=== PATIENT | female | born 1985 | race Caucasian/White ===

== ENCOUNTER 2022-12-22 16:07 | Outpatient (CLI) | payer OTHER, SELFPAY ==
[2022-12-22] VITALS (8 sets, daily range): BP systolic 122–147; BP diastolic 69–85; PULSE 81–93
[2022-12-22 16:49] LABS: Basophils Percent Auto 0.5 % (0.2-1.2); Eosinophils Absolute Auto 0.2 K/mm3 (0-0.3); Eosinophils Percent Auto 2.4 % (0-4.4); Hemoglobin 9.9 g/dL (12.0-15.0); Immature Granulocyte Absolute 0.05 K/mm3 (0.00-0.031); Immature Granulocyte Percent A 0.6 % (0-0.5); Lymphocytes Absolute Auto 1.47 K/mm3 (0.9-3.2); Lymphocytes Percent Auto 18.9 % (18.3-44.2); Mean Corpuscular HGB Conc 31.9 g/dl (32-36); Mean Corpuscular Hemoglobin 29.2 pg (26-34); Mean Corpuscular Volume 91.4 fl (80-100); Mean Platelet Volume 9.7 fl (7.4-10.4); Monocytes Absolute Auto 0.7 K/mm3 (0.1-0.6); Monocytes Percent Auto 8.7 % (2.6-8.5); Neutrophils Absolute Auto 5.4 K/mm3 (1.3-6.7); Neutrophils Percent Auto 68.9 % (45.5-73.1); Platelet Count Result 311 k/mm3 (150-375); Red Blood Count 3.39 M/mm3 (4.2-5.4); Red Cell Distribution Width 13.3 % (11.5-14.5); White Blood Count 7.8 K/mm3 (4.5-10.0)
[2022-12-22 17:00] LABS: Alanine Aminotransferase 18 U/L (6-35); Albumin Level 3.5 g/dL (3.5-5.1); Alkaline Phosphatase 100 U/L (38-126); Anion Gap 3 mmol/L (8-16); Aspartate Amino Transferase 24 U/L (14-36); Bilirubin,Total 0.8 mg/dL (0.2-1.3); Blood Urea Nitrogen 8 mg/dL (7-17); Calcium 10.3 mg/dL (8.4-10.2); Carbon Dioxide 25 mmol/L (22-30); Chloride 107 mmol/L (98-107); Estimated Glomerular Filt Rate > 60; Glucose 77 mg/dL (65-110); Potassium 3.7 mmol/L (3.4-5.0); Sodium 135 mmol/L (137-145); Uric Acid 3.6 mg/dL (2.5-7.5)
[2022-12-22 17:28] LABS: Creatinine Urine 50.8 mg/dL; Total Protein Urine Random 20 mg/dL; Ur Ttl Prot Creatinine Ratio 0.39 mg/mg (0-0.20)
[2022-12-22 17:39] LABS: Appearance Urine Clear (Clear); Bacteria Urine None Seen /hpf; Bilirubin Urine Negative (Negative); Blood Urine Negative (Negative); Color Urine Yellow (Yellow); Glucose Urine UA Negative (Negative); Ketones Urine Trace mg/dL (Negative); Leukocyte Esterase Ur 1+ LEU/UL (NEGATIVE); Need Manual Microscopic Reviewed; Nitrate Urine Negative (Negative); Non Pathogenic Casts 0-2; Protein Urine Negative (Negative); RBC Urine 0-2 /hpf (0-2); Specific Grav Ur 1.007 (1.001-1.035); Squamous Epithelial Cell Urine None seen /hpf (Few); Urobilinogen Urine 0.2 mg/dL (<2.0); WBC Urine 0-5 /hpf (0-3)
[2022-12-22 17:55] LABS: Add Urine Microscopic? YES
--- NOTE | 2022-12-22 17:57 | PC.NURSE ---
1731- this RN called Dr. Hernandez and reported lab findings as well as result as a reactive NST. Order received for 24 hour urine as well as orders to discharge pt.
== END 2022-12-22 17:55 ==
LOC: ANHOBOP 16:18 → ANHLDR 16:20
PROVIDERS: Visit Provider Obstetrics & Gynecology Gynecology
DX: O13.9 Gestational [pregnancy-induced] hypertension without significant proteinuria, unspecified trimester (principal); Z3A.00 Weeks of gestation of pregnancy not specified
CPT/HCPCS: 36415; 59025; 80053; 81001; 82570; 84156; 84550; 85025; 87086; 99199

== ENCOUNTER 2022-12-26 09:15 | Outpatient (NON) | payer OTHER, SELFPAY ==
[2022-12-26 09:41] VITALS: BMI 34.7
[2022-12-26 10:04] LABS: Collection Time Urine 24 HOURS
[2022-12-26 10:07] LABS: Total Volume 24 Hour Urine 2100 ml
[2022-12-26 10:13] LABS: Creatinine Clearance Urine 156.6 ml/min (75-125); Creatinine Urine 80.2 mg/dL; Patient Weight 228 Lbs; Total Protein Urine 24 Hr 357 mg/24hr (28-141); Total Protein Urine Random 17 mg/dL
== END 2022-12-26 09:16 | disposition home or self-care (01) ==
LOC: ANHOBOP 09:37
PROVIDERS: Visit Provider Obstetrics & Gynecology Gynecology
DX: Z34.90 Encounter for supervision of normal pregnancy, unspecified, unspecified trimester (principal); Z3A.00 Weeks of gestation of pregnancy not specified
CPT/HCPCS: 81050; 82575; 84156

== ENCOUNTER 2023-01-23 09:01 | Outpatient (RCR) | payer OTHER, SELFPAY ==
[2023-01-15 16:06] VITALS: BP 130/77; PULSE 99
[2023-01-15 16:15] VITALS: BP 121/77; PULSE 92
[2023-01-15 16:30] VITALS: BP 118/77; BP 121/77; PULSE 92; PULSE 95
[2023-01-23 09:44] VITALS: BP 113/76; PULSE 94
== END 2023-04-15 23:59 | disposition home or self-care (01) ==
LOC: ANHOBOP 09:01
PROVIDERS: Visit Provider Obstetrics & Gynecology Gynecology
DX: O13.9 Gestational [pregnancy-induced] hypertension without significant proteinuria, unspecified trimester (principal); Z3A.00 Weeks of gestation of pregnancy not specified
CPT/HCPCS: 59025

== ENCOUNTER 2023-01-27 17:12 | Inpatient (IN) | payer OTHER, SELFPAY ==
[2023-01-27] VITALS (9 sets, daily range): BP systolic 123–137; BP diastolic 70–87; PULSE 72–104; TEMP 36.6; BMI 35.5
--- NOTE | 2023-01-27 17:16 | WPDOBADMIT ---
Obstetrics - Admit Note Admission Note: record reviewed. No pertinent additions to the history and/or any subsequent changes in the physical findings that are not consistent with the expected course of the were found. Additions to the history and/or subsequent changes in the physical findings follow. None.
--- NOTE | 2023-01-27 19:16 | ADMGEN ---
This patient, Lydia Bean, was admitted to Labor/Delivery/Recovery 108-00. Patient/family oriented to hospital policies and general routines including ID bracelet, bed and alarms, visiting hours, pain management, procedures, bathroom and other care routines, personal items, smoking policy, room service/diet, and visiting hours. Information on how to activate the Rapid Response Team has been discussed. Patient/Family are encouraged to report perceived risks to care and to ask questions if they do not understand what they are told or what they should do.
[2023-01-27 19:35] LABS: Basophils Percent Auto 0.5 % (0.2-1.2); Eosinophils Absolute Auto 0.1 K/mm3 (0-0.3); Eosinophils Percent Auto 1.3 % (0-4.4); Hemoglobin 9.5 g/dL (12.0-15.0); Immature Granulocyte Absolute 0.04 K/mm3 (0.00-0.031); Immature Granulocyte Percent A 0.5 % (0-0.5); Lymphocytes Absolute Auto 1.41 K/mm3 (0.9-3.2); Mean Corpuscular HGB Conc 31.7 g/dl (32-36); Mean Corpuscular Hemoglobin 29.5 pg (26-34); Mean Corpuscular Volume 93.2 fl (80-100); Mean Platelet Volume 10.7 fl (7.4-10.4); Monocytes Absolute Auto 0.6 K/mm3 (0.1-0.6); Neutrophils Absolute Auto 5.7 K/mm3 (1.3-6.7); Neutrophils Percent Auto 72.7 % (45.5-73.1); Platelet Count Result 268 k/mm3 (150-375); Red Blood Count 3.22 M/mm3 (4.2-5.4); Red Cell Distribution Width 13.1 % (11.5-14.5); White Blood Count 7.8 K/mm3 (4.5-10.0)
[2023-01-27] MEDS: miSOPROStol 25 MCG TABLET SUBLINGUAL (19:45)
[2023-01-27 19:47] LABS: Alanine Aminotransferase 14 U/L (6-35); Albumin Level 3.3 g/dL (3.5-5.1); Alkaline Phosphatase 116 U/L (38-126); Anion Gap 8 mmol/L (8-16); Aspartate Amino Transferase 21 U/L (14-36); Bilirubin,Total 0.6 mg/dL (0.2-1.3); Blood Urea Nitrogen 9 mg/dL (7-17); Calcium 9.3 mg/dL (8.4-10.2); Carbon Dioxide 21 mmol/L (22-30); Chloride 108 mmol/L (98-107); Estimated CRCL calculation 121 ml/min; Estimated Glomerular Filt Rate > 60; Glucose 104 mg/dL (65-110); Potassium 3.5 mmol/L (3.4-5.0); Sodium 137 mmol/L (137-145); Uric Acid 3.6 mg/dL (2.5-7.5)
--- NOTE | 2023-01-27 19:51 | WPDANESEPP ---
Anes - Eval Pre Procedure Procedure: labor epidural Date/Time: 01/27/23 19:51 Pre Op Diagnosis: IOL Patient Data Age: 37 Gender: F Height: 1.73 m Weight: 106 kg Last Vital Signs Pulse 85 01/27/23 19:31 BP 132/79 01/27/23 19:31 O2 Del Method Room Air 01/27/23 19:01 Allergies Allergy/AdvReac Type Severity Reaction Status Date / Time No Known Allergies Allergy Mild Verified 01/27/23 18:54 Home Medications Medication Instructions Recorded Confirmed Type cholecalciferol (vitamin D3) 50 2,000 unit PO DAILY 01/15/23 01/27/23 History mcg (2,000 unit) tablet (Vitamin D3) ferrous sulfate 325 mg (65 mg 325 mg PO BID 01/15/23 01/27/23 History iron) tablet (iron) albuterol sulfate 90 mcg/actuation 2 puff inhalation Q4H PRN 01/23/23 01/27/23 History aerosol inhaler Shortness Of Breath aspirin 81 mg capsule 162 mg PO DAILY 01/23/23 01/27/23 History vit no.95-ferrous 1 tablet PO DAILY 01/23/23 01/27/23 History fumarate 28 mg-folic acid 800 mcg tablet () Laboratory Tests 01/27/23 01/27/23 18:58 18:58 WBC 7.8 K/mm3 (4.5-10.0) RBC 3.22 L M/mm3 (4.2-5.4) Hgb 9.5 L g/dL (12.0-15.0) Hct 30.0 L % (37.0-47.0) MCV 93.2 fl (80-100) MCH 29.5 pg (26-34) MCHC 31.7 L g/dl (32-36) RDW 13.1 % (11.5-14.5) Plt Count 268 k/mm3 (150-375) MPV 10.7 H fl (7.4-10.4) Immature Gran % (Auto) 0.5 % (0-0.5) Neut % (Auto) 72.7 % (45.5-73.1) Lymph % (Auto) 18.0 L % (18.3-44.2) [place] % (Auto) 7.0 % (2.6-8.5) Eos % (Auto) 1.3 % (0-4.4) Baso % (Auto) 0.5 % (0.2-1.2) Lymph # (Auto) 1.41 K/mm3 (0.9-3.2) [place] # (Auto) 0.6 K/mm3 (0.1-0.6) Eos # (Auto) 0.1 K/mm3 (0-0.3) Baso # (Auto) 0.0 K/mm3 (0.0-0.1) Abs Immat Gran (auto) 0.04 H K/mm3 (0.00-0.031) Absolute Neuts (auto) 5.7 K/mm3 (1.3-6.7) Absolute Nucleated RBC 0.0 K/mm3 (0.0-0.012) Nucleated RBC % 0.0 % (0.0-0.2) Sodium 137 mmol/L (137-145) Potassium 3.5 mmol/L (3.4-5.0) Chloride 108 H mmol/L (98-107) Carbon Dioxide 21 L mmol/L (22-30) Anion Gap 8 mmol/L (8-16) BUN 9 mg/dL (7-17) Creatinine 0.70 mg/dL (0.7-1.0) Estim Creat Clear Calc 121 ml/min Estimated GFR > 60 (59 - ) Glucose 104 mg/dL (65-110) Uric Acid Cancelled 3.6 mg/dL (2.5-7.5) Calcium 9.3 mg/dL (8.4-10.2) Total Bilirubin 0.6 mg/dL (0.2-1.3) AST 21 U/L (14-36) ALT 14 U/L (6-35) Alkaline Phosphatase 116 U/L (38-126) Total Protein 6.0 L g/dL (6.3-8.2) Albumin 3.3 L g/dL (3.5-5.1) RPR Pending Patient hx anesthesia problems: none Family hx anesthesia problems: none Results Review: All pre-operative results and documents have been reviewed as part of the pre-operative evaluation. [facility] Past Medical History Medical History Anemia Asthma PIH ( induced hypertension) Family History Family History Mother Hypertension Father Hypertension Social History Social History Smoking status: Never smoker Substance use: never Lack of Transportation: No Lack of Food: Never True Current Housing: I Have Housing Concerned About Future Housing: No Difficulty Paying Gas/Electric Bills: No Difficulty Paying for Meds: No Currently Unemployed: No Education: Associate Degree Difficulty w/ Childcare or Family Care: No Spiritual care concerns: No Exam Day of Procedure 01/27/23 19:51 Patient weight: obese Heart: regular rate and rhythm Lungs: normal air movement Airway: Mallampati scale Neurological: diana
[2023-01-28] VITALS (35 sets, daily range): BP systolic 116–161; BP diastolic 59–109; PULSE 41–105; RESP 16–18; TEMP 36.1–37.3; O2SAT 82–100
[2023-01-28] MEDS: miSOPROStol 25 MCG TABLET 50 MCG SUBLINGUAL (00:11)
[2023-01-28] MEDS: LACTATED RINGERS 1,000 ML 125 ML IV CONT (04:56)
[2023-01-28] MEDS: OXYTOCIN 30 UNITS/NS 500 ML 30 UNITS/500 ML BAG IV CONT (04:56)
--- NOTE | 2023-01-28 06:37 | PM.OBPNLAB ---
Pain Control Date/time seen: 01/28/23 06:35 Pain control: tolerating well Comments: feeling occasional cramping in the front of her abdomen Pelvic Exam Dilation (cm): 3 Effacement (%): 60 station: -3 Amniotic membrane status: Intact Comments: head well applied to the cervix. Contractions Monitor mode: External Contraction pattern: Irregular Contraction intensity: Mild Status status: Category l Assessment and Plan Pitocin rate (mU/min): 4 Assessment: induction ongoing Comments: CNM to bedside. Discussed plan of care an option for amniotomy. Discussed risks, benefits, and expectations of breaking water. Patient is agreeable. Amniotomy performed and there was large return of clear amniotic fluid. Patient tolerated procedure well. Anticipate vaginal .
--- NOTE | 2023-01-28 08:58 | PM.OBPNLAB ---
Pain Control Date/time seen: 01/28/23 08:55 Pain control: tolerating well Comments: Feeling more intense contractions Pelvic Exam Dilation (cm): 6 Effacement (%): 90 station: 0 Amniotic membrane status: Ruptured Contractions Monitor mode: External Contraction pattern: Regular Contraction intensity: Strong/Firm Status status: Category l Assessment and Plan Pitocin rate (mU/min): 6 Plan: continuous present management Comments: Dr. Hernandez updated.
--- NOTE | 2023-01-28 09:56 | PM.OBPRVD ---
OB - Vaginal Delivery Note Procedure Delivery date: 01/28/23 Events: Preeclampsia w/o severe features Induction method: Per Misoprostol Protocol Delivery augmentation: Rupture of Membranes Delivery monitor: External FHT and External Uterine Route of delivery: Episiotomy description: None Laceration Description: Periurethral Specimen: Yes (placenta) Quantitative Blood Loss (ml): 100 Anesthesia type: None Disposition: Floor Complications: No immediate complications Narrative: Lydia arrived for Induction of labor secondary to preeclampsia. She was given Cytotec followed by Pitocin and made rapid change to complete dilation. She pushed very well with contractions and delivered the head in a very controlled manner while in hands and knees position. with the next push she delivered the anterior and posterior shoulders followed by the remainder of the . The was placed on the maternal abdomen and dried and stimulated by the nursery staff. the patient was assisted to semi-Weinberg's after 1 minute of life, the cord was doubly clamped and cut. Cord blood, cord gases, and cord segment were obtained. This placenta delivered spontaneously. A first-degree periurethral laceration was noted to be hemostatic and did not require repair. All delivery counts correct. There was excellent uterine tone and hemostasis. Mother and baby skin to skin in the delivery room. Baby Date of : 01/28/23 Time of : 09:38 Weeks of gestation at delivery: 37 Infant gender: Male Weight (pounds): 0 (unavailable at this time. ) presentation: vertex position: Left Occiput Anterior Placenta delivery description: Spontaneous and Other (marginal insertion) Cord Vessel Description: 3 Vessels and Delayed Cord Clamping score one minute: 9 score five minutes: 9
--- NOTE | 2023-01-28 10:00 | PM.OBDSVD ---
DS: Admitting Diagnosis Discharge Date 01/30/2023 Admitting Diagnosis 37 y.o. at 37 weeks 3 days. Preeclampsia AMA Asthma Marginal Cord insertion DS: Discharge Diagnosis Discharge Diagnosis (1) (normal spontaneous vaginal delivery): Code(s): O80 - Encounter for full-term uncomplicated delivery Status: Acute (2) Preeclampsia: Code(s): O14.90 - Unspecified pre-eclampsia, unspecified trimester Status: Acute (3) Mother currently breastfeeds: Status: Acute OB - DS: Summary Hospital Course Hospital Course: Uncomplicated OB Procedures : NST, PIH Mgmt and Ultrasound OB Procedures Intrapartum: Spontaneous Vag Delivery OB Procedures: : None Peripartum Data Delivery Method: Natural Vaginal Laceration Description: Periurethral Episiotomy description: None complications: none Status at Discharge Functional status at discharge: independent ambulation Overall status at discharge: patient is progressing back to baseline Time Spent with Patient Time attestation: Total time spent providing and/or coordinating discharge services: Exam Narrative: Alert and oriented. Mood is pleasant and cooperative. Perineum with minimal edema. Fundus firm and below umbilicus. Const: General: cooperative, healthy appearing, no acute distress and alert Orientation/consciousness: patient oriented x3 Limitations: no limitations Resp: Effort & Inspection: normal respiratory effort and able to speak in complete sentences Auscultation: clear to auscultation bilaterally Cardio: Rate: regular rate GI: Inspection: normal to inspection Auscultation: normal bowel sounds : General: Yes bladder normal to palpation External Female Exam: other (lochia WNL) Bimanual exam- vagina & uterus: bladder normal to palpation Other: Fundus firm and below U Skin: General skin exam: normal color and no rashes or lesions noted Neuro: General: patient oriented x3 and moves all extremities Cognition (Neuro): normal cognition Extrem: General: normal to inspection and no calf tenderness Psych: Appearance: grossly normal Mental Status: mental status grossly normal Affect: normal affect Thought process: Normal thought process present DS: Data Data Completed and Pending Labs on day of discharge: Labs from last 24 hours 01/27/23 01/27/23 18:58 18:58 WBC 7.8 RBC 3.22 L Hgb 9.5 L Hct 30.0 L MCV 93.2 MCH 29.5 MCHC 31.7 L RDW 13.1 Plt Count 268 MPV 10.7 H Immature Gran % (Auto) 0.5 Neut % (Auto) 72.7 Lymph % (Auto) 18.0 L [place] % (Auto) 7.0 Eos % (Auto) 1.3 Baso % (Auto) 0.5 Lymph # (Auto) 1.41 [place] # (Auto) 0.6 Eos # (Auto) 0.1 Baso # (Auto) 0.0 Abs Immat Gran (auto) 0.04 H Absolute Neuts (auto) 5.7 Absolute Nucleated RBC 0.0 Nucleated RBC % 0.0 Sodium 137 Potassium 3.5 Chloride 108 H Carbon Dioxide 21 L Anion Gap 8 BUN 9 Creatinine 0.70 Estim Creat Clear Calc 121 Estimated GFR > 60 Glucose 104 Uric Acid 3.6 Cancelled Calcium 9.3 Total Bilirubin 0.6 AST 21 ALT 14 Alkaline Phosphatase 116 Total Protein 6.0 L Albumin 3.3 L RPR Pending Blood Type A Positive Antibody Screen Negative Discharge Plan Discharge Attending physician on discharge: Kate Hernandez Discharging Clinician: Alysha Sanchez Anticipated Discharge Date/Time: 01/30/23 10:00 Patient Disposition: Home, Self-Care Activity: may shower and pelvic rest Diet: as tolerated Wound Care Instructions: follow printed instructions Discharge Instructions: Continue taking your vitamin and any other supplements as previously directed (Examples: Iron, Vitamin D). You may take Tylenol 1000mg over the counter every 6 hours as needed for pain. Do not exceed 4000mg of Tylenol daily. You may continue using tucks pads and dermoplast spray if needed for a few more days. Postpa
[2023-01-28] MEDS: OXYTOCIN 30 UNITS/NS 500 ML 30 UNITS/500 ML BAG 125 UNITS IV CONT (10:16)
[2023-01-28 10:49] LABS: Rapid Plasma Reagin Non-Reactive (NonReactive)
[2023-01-28] MEDS: BENZOCAINE 20% AER SPR (*SP) 56 GM CAN 1 SPRAY TOPICAL (11:34)
[2023-01-28] MEDS: WITCH HAZEL 40 PADS 1 PAD TOPICAL (11:34)
--- NOTE | 2023-01-28 12:43 | PC.NURSE ---
Patient transferred to post room #278 via wheelchair. Support person present. Oriented to unit, room, information board, rooming in, admission packet and security measures. Patient verbalizes understanding.
[2023-01-28] MEDS: FERROUS SULFATE 325 MG TABLET DR PO (17:06)
[2023-01-28] MEDS: IBUPROFEN 600 MG TABLET PO (18:07)
[2023-01-29 04:30] VITALS: BP 125/83; PULSE 72; RESP 18; TEMP 36.6; O2SAT 99
[2023-01-29 05:57] LABS: Hematocrit 28.3 % (37.0-47.0); Hemoglobin 9.3 g/dL (12.0-15.0)
--- NOTE | 2023-01-29 07:00 | PC.NURSE ---
PT introductions made and plan of care discussed per post , pain management, breast feeding, daily care activities. PT sole recipient of such instructions and no barriers to learning identified at this time. PT received such instructions per one to one discussion, mom baby care guide and demonstrations this shift. PT verbalized understanding of such care.
[2023-01-29 07:35] VITALS: BP 135/88; PULSE 81; RESP 16; TEMP 36.4; O2SAT 100
--- NOTE | 2023-01-29 09:30 | P.PNOB_ITS ---
OB - PN: Subj Subjective Date/time seen: 01/29/23 0700 Interval history: Doing well. Urinating without difficulty. Denies passing any large clots. Denies dizziness with ambulating. Tolerating po food and fluids. Bonding with infant. Patient comments: pain well controlled [place] baby status: nursing well feeding status: exclusively breast feeding OB - PN: Obj Data Labs 01/29/23 04:10 01/27/23 18:58 Labs: Laboratory Results - last 24 hr 01/27/23 01/29/23 18:58 04:10 Hgb 9.3 L Hct 28.3 L RPR Non-reactive OB - PN A/P Plan day: 1 Plan: routine care Time Spent With Patient Time: Total time spent is greater than 50% in coordination of care (as documented) at patient's floor/unit and/or counseling patient: Review of Systems Review of Systems: All systems reviewed & are unremarkable except as noted in HPI and below Exam Narrative: Alert and oriented. Mood is pleasant and cooperative. Perineum with minimal edema. Fundus firm and below umbilicus. Const: General: cooperative, healthy appearing, no acute distress and alert Orientation/consciousness: patient oriented x3 Limitations: no limitations Resp: Effort & Inspection: normal respiratory effort and able to speak in complete sentences Auscultation: clear to auscultation bilaterally Cardio: Rate: regular rate GI: Inspection: normal to inspection Auscultation: normal bowel sounds : General: Yes bladder normal to palpation External Female Exam: other (lochia WNL) Bimanual exam- vagina & uterus: bladder normal to palpation Other: Fundus firm and below U Skin: General skin exam: normal color and no rashes or lesions noted Neuro: General: patient oriented x3 and moves all extremities Cognition (Neuro): normal cognition Extrem: General: normal to inspection and no calf tenderness Psych: Appearance: grossly normal Mental Status: mental status grossly normal Affect: normal affect Thought process: Normal thought process present
[2023-01-29 10:24] VITALS: PULSE 81; RESP 16; O2SAT 100
[2023-01-29] MEDS: FERROUS SULFATE 325 MG TABLET DR PO ×2 (10:24→16:57)
[2023-01-29] MEDS: POLYSACCHARIDE IRON COMPLEX 150 MG CAPSULE PO (10:24)
[2023-01-29] MEDS: DOCUSATE SODIUM 100 MG CAPSULE PO ×2 (10:24→16:57)
[2023-01-29] MEDS: ACETAMINOPHEN 325 MG TABLET 650 MG PO ×2 (10:24→16:57)
[2023-01-29] MEDS: MULTIVIT/MIN/PREN/FOL AC/IRON TABLET 1 TAB PO (10:24)
[2023-01-29] MEDS: CHOLECALCIFEROL 1,000 UNITS TABLET 2000 UNITS PO (10:27)
[2023-01-29 14:15] VITALS: BP 123/73; PULSE 70; RESP 16; TEMP 36.6; O2SAT 99
--- NOTE | 2023-01-29 15:31 | PC.NURSE ---
[id number] Introductions were made, then consulted with patient to assess needs related to . Discussed with mother her?plans to feed?her infant, the?experience so far and states she is latching her infant on her own with no pain. mother is confident even though it has been 17 years since she breastfed her first child. Resources provided for inpatient and outpatient services with the feeding sheet, mom/baby guide and name written on the communication board. Mother voiced understanding of information and will call if there is a request for assistance. [phone] Primary RN is present and patient states she is latching without pain and hears infant swallowing. LC encouraged patient to call for a latch assessment today. Mother voiced understanding of the information. [phone] Mother called for a latch assessment. The latch was effective at the beginning, then became shallow. Nipple visualized in the corner of 's mouth. Demonstrated to mother repositioning herself for comfort with added support for infant and her wrist. Adjusted infants body to encourage deep optimal latching with no space to the right breast using football positioning. Reminded mother of keeping the body close to her body to promote a deeper latch. Mother denies pain and voiced understanding of the information.
[2023-01-29 16:46] VITALS: BP 118/75; PULSE 77; RESP 16; TEMP 36.7; O2SAT 98
[2023-01-29] MEDS: IBUPROFEN 600 MG TABLET PO (16:57)
[2023-01-29 19:30] VITALS: BP 1323/68; PULSE 75; RESP 16; TEMP 36.6
[2023-01-30 07:45] VITALS: BP 140/88; PULSE 72; RESP 16; TEMP 36.6; O2SAT 100
--- NOTE | 2023-01-30 07:58 | PM.OBPNVD ---
OB - PN: Subj Subjective Date/time seen: 01/30/23 07:58 Interval history: States doing well overnight. Urinating without difficulty/pain. Denies passing any large clots or heavy bleeding. Denies dizziness with ambulating. Tolerating po food and fluids. Bonding with infant. well. No BALL, visual changes, RUQ pain, or change in edema. Patient comments: no complaints baby status: doing well and nursing well feeding status: exclusively breast feeding OB - PN: Obj Data Labs 01/29/23 04:10 01/27/23 18:58 OB - PN A/P Plan day: 2 Plan: discharge home Time Spent With Patient Time: Total time spent is greater than 50% in coordination of care (as documented) at patient's floor/unit and/or counseling patient: Review of Systems Review of Systems: All systems reviewed & are unremarkable except as noted in HPI and below Exam Narrative: Alert and oriented. Mood is pleasant and cooperative. Perineum with minimal edema. Fundus firm and below umbilicus. Const: General: cooperative, healthy appearing, no acute distress and alert Orientation/consciousness: patient oriented x3 Limitations: no limitations Resp: Effort & Inspection: normal respiratory effort and able to speak in complete sentences Auscultation: clear to auscultation bilaterally Cardio: Rate: regular rate GI: Inspection: normal to inspection Auscultation: normal bowel sounds : General: Yes bladder normal to palpation External Female Exam: other (lochia WNL) Bimanual exam- vagina & uterus: bladder normal to palpation Other: Fundus firm and below U Skin: General skin exam: normal color and no rashes or lesions noted Neuro: General: patient oriented x3 and moves all extremities Cognition (Neuro): normal cognition Extrem: General: normal to inspection and no calf tenderness Psych: Appearance: grossly normal Mental Status: mental status grossly normal Affect: normal affect Thought process: Normal thought process present
--- NOTE | 2023-01-30 08:00 | PC.NURSE ---
Patient viewed the discharge video Mother & Baby Care, The First Two Weeks online. Patient was given the opportunity and encouraged to ask questions. Patient verbalized understanding of information shared and has been given the mother/baby guide for home reference.
[2023-01-30] MEDS: CHOLECALCIFEROL 1,000 UNITS TABLET 2000 UNITS PO (08:51)
[2023-01-30] MEDS: DOCUSATE SODIUM 100 MG CAPSULE PO (08:52)
[2023-01-30] MEDS: IBUPROFEN 600 MG TABLET PO (08:52)
[2023-01-30] MEDS: FERROUS SULFATE 325 MG TABLET DR PO (08:52)
[2023-01-30] MEDS: MULTIVIT/MIN/PREN/FOL AC/IRON TABLET 1 TAB PO (08:52)
[2023-02-02 13:01] VITALS: BP 139/100; PULSE 79; RESP 18; TEMP 36.8; O2SAT 99
== END 2023-01-30 11:55 | disposition home or self-care (01) | DRG 807 ==
LOC: ANHLDR 01-28 10:03 → ANHOB2 01-28 12:53
PROVIDERS: Advanced Practice Midwife; Admitting Provider Obstetrics & Gynecology Gynecology; Visit Provider Obstetrics & Gynecology Gynecology
DX: O14.94 Unspecified pre-eclampsia, complicating childbirth (principal); Z37.0 Single live birth; Z3A.37 37 weeks gestation of pregnancy; O71.82 Other specified trauma to perineum and vulva; O99.52 Diseases of the respiratory system complicating childbirth; J45.909 Unspecified asthma, uncomplicated; O43.103 Malformation of placenta, unspecified, third trimester
CPT/HCPCS: 36415; 80053; 84550; 85014; 85018; 85025; 86592; 86850; 86900; 86901; 88307; A9270; J2590; J7120

== ENCOUNTER 2023-04-06 00:40 | Day surgery (SDC) | payer OTHER, SELFPAY ==
[2023-03-25 12:23] VITALS: BMI 30.4
--- NOTE | 2023-03-25 12:27 | PC.NURSE ---
Report to the Outpatient Waiting Room, entrance under the green pavilion located off [facility], at time 0915 on date 04/06/23. Planned Procedure Time: 1115. Time changes happen often and if your time is changed the preop area will call you the afternoon before. - You and your visitor will be asked to self-screen and do not enter if you have any COVID symptoms. - A mask is optional within the hospital at this time. Patients may have clear liquids (water, carbonated beverages, clear teas, apple juice) until 3 hours prior to surgery with a maximum of 20 ounces. - No food from midnight until time of surgery Take the following medications with a SIP of water the morning of surgery: INHALER IF NEEDED DO NOT STOP ANY OF YOUR OTHER PRESCRIPTION MEDICATIONS PRIOR TO SURGERY ?EXCEPT THE FOLLOWING Medications to discontinue per physician: VITAMINS/SUPPLEMENTS Date to take last dose: 04/02/23 Please no make-up, nail slovenian, hairspray, perfume, deodorant, or body powder the day of surgery. No jewelry (including any body piercings) or valuables the day of surgery, leave them at home. Please take a shower or bath the night before, or the morning of, surgery with an antibacterial soap. Wear comfortable, loose fitting clothing. - Jewelry must be removed prior to entering the operating room. Rings and piercings that are not removed may be cut off. - The hospital will not accept responsibility for valuables. - Please leave all valuables, including medications, at home the day of surgery. If you are going home after surgery, a licensed van driver must drive you home. - NO public transportation without another adult if you receive anesthesia. - We recommend that an adult stay with you for 24 hours following discharge. - We also recommend that you do not drive, make important decision, drink alcoholic beverages, or take any drugs that were not prescribed by your health care provider for at least 24 hours after your discharge time. Follow any additional instructions given to you from your surgeon. If you or anyone in your household have experienced Covid symptoms in the past week, please notify your surgeon or the nurse liaison at the phone number below for possible testing. Telephone instructions given to PT - BENY GOODWIN and asked if any additional questions and then verbalized understanding. Patient advised to call surgeon office or pre surgery nurse liaison [phone] if any additional questions.
[2023-04-06] VITALS (8 sets, daily range): BP systolic 110–147; BP diastolic 68–105; PULSE 58–82; RESP 12–21; TEMP 36.3–36.7; O2SAT 97–100
--- NOTE | 2023-04-06 08:14 | WPDHPUPDATE1 ---
History and Physical Update Update Date/Time: 04/06/23 08:14 History and Physical has been reviewed, including an updated exam of the patient. There are NO changes in the patient's condition. Risks, benefits, and alternatives have been discussed and questions answered. Patient agrees to proceed with procedure.
--- NOTE | 2023-04-06 08:14 | PM.HPGS ---
History of Present Illness History of Present Illness Consent: Risks, benefits, and alternatives have been discussed and questions answered. Patient agrees to proceed with procedure. Chief complaint: sterilization Narrative: Lydia Bean is a 37 year old female who has completed her childbearing and requests permanent sterilization. Options were reviewed. Patient elects to proceed with laparoscopic bilateral salpingectomy. Risks of infection, bleeding, injury to internal organs, and general anesthesia are reviewed. Patient voices understanding and agrees to proceed. Review of Systems Review of Systems: not repeated day of surgery; patient states no changes in status [facility] Past Medical History Medical History (Updated 04/06/23 @ 08:18 by Kate Hernandez MD) Asthma (normal spontaneous vaginal delivery) 2005 36 weeks preeclampsia 2022 37 weeks preeclampsia PIH ( induced hypertension) Family History Family History Mother Hypertension Father Hypertension Social History Social History Smoking status: Never smoker Alcohol intake: current Drinks per week: 1 Substance use: never Substance use type: does not use Lack of Transportation: No Lack of Food: Never True Current Housing: I Have Housing Concerned About Future Housing: No Difficulty Paying Gas/Electric Bills: No Difficulty Paying for Meds: No Currently Unemployed: No Education: Associate Degree Difficulty w/ Childcare or Family Care: No Living arrangements: with family Spiritual care concerns: No Meds Home Medications and Allergies Home Medications Medication Instructions Recorded Confirmed Type vit no.95-ferrous 1 tablet PO DAILY 01/23/23 03/25/23 History fumarate 28 mg-folic acid 800 mcg tablet () albuterol sulfate 90 mcg/actuation 2 inh inhalation Q4H PRN Shortness 03/25/23 03/25/23 History aerosol inhaler Of Breath Allergies Allergy/AdvReac Type Severity Reaction Status Date / Time No Known Allergies Allergy Mild Verified 03/25/23 12:22 Exam Const: General: healthy appearing and alert Orientation/consciousness: patient oriented x3 Resp: Effort & Inspection: normal respiratory effort : External Female Exam: normal external appearance Speculum Exam - Vagina: normal appearance of the vagina and normal vaginal discharge Speculum Exam - Cervix: normal appearance of the cervix Bimanual exam- vagina & uterus: uterine size normal and consistency normal Bimanual Exam- Adnexa, other: normal adnexae and No adnexal tenderness Neuro: General: patient oriented x3 Assessment and Plan Assessment and plan (1) Encounter for sterilization: Code(s): Z30.2 - Encounter for sterilization Status: Acute Assessment and Plan: plan to proceed with laparoscopic bilateral salpingectomy
--- NOTE | 2023-04-06 09:53 | P.PNAN_ITS ---
Anes - Initial Pre Proc Eval Procedure: Operation Date: 04/06/23 11:15 Proposed Procedures p Laparoscopic Bilateral Salpingectomy - Kate Hernandez MD Date/Time: 04/06/23 09:53 Surgeon: Kate Hernandez MD Pre Op Diagnosis: sterilization Patient Data Age: 37 Gender: F Height: 1.73 m Weight: 90.75 kg Allergies Allergy/AdvReac Type Severity Reaction Status Date / Time No Known Allergies Allergy Mild Verified 04/06/23 09:50 Home Medications Medication Instructions Recorded Confirmed Type vit no.95-ferrous 1 tablet PO DAILY 01/23/23 04/06/23 History fumarate 28 mg-folic acid 800 mcg tablet () albuterol sulfate 90 mcg/actuation 2 inh inhalation Q4H PRN Shortness 03/25/23 03/25/23 History aerosol inhaler Of Breath Patient hx anesthesia problems: none Family hx anesthesia problems: none Results Review: All pre-operative results and documents have been reviewed as part of the pre- operative evaluation. [facility] Past Medical History Medical History Asthma (normal spontaneous vaginal delivery) 2005 36 weeks preeclampsia 2022 37 weeks preeclampsia PIH ( induced hypertension) Family History Family History Mother Hypertension Father Hypertension Social History Social History Smoking status: Never smoker Alcohol intake: current Drinks per week: 1 Substance use: never Substance use type: does not use Lack of Transportation: No Lack of Food: Never True Current Housing: I Have Housing Concerned About Future Housing: No Difficulty Paying Gas/Electric Bills: No Difficulty Paying for Meds: No Currently Unemployed: No Education: Associate Degree Difficulty w/ Childcare or Family Care: No Living arrangements: with family Spiritual care concerns: No Anes - Eval Final PreProcedure Day of Procedure 04/06/23 09:53 Patient weight: obese Heart: regular rate and rhythm Lungs: clear to auscultation Airway: Mallampati scale class II Neurological: alert and oriented Last oral intake: >/= 8 hours ASA classification: II Emergent: no Anesthetic plan: proceed Anesthesia type and monitoring: general ETT and standard monitoring Results Review: All pre-operative results and documents have been reviewed as part of the pre- operative evaluation. Informed Consent: The patient's anesthetic plan and its attendant risks and benefits were discussed with the patient/family/POA. Questions were solicited and answers pr ovided to the satisfaction of the patient/family/POA.
[2023-04-06] MEDS: ACETAMINOPHEN 500 MG TABLET 1000 MG PO (09:58)
[2023-04-06] MEDS: LACTATED RINGERS 1,000 ML 30 ML IV CONT ×2 (10:05→11:36)
[2023-04-06] MEDS: KETOROLAC 15 MG/ML VIAL (*BKC) IV PUSH (10:13)
[2023-04-06] MEDS: SCOPOLAMINE 1 MG PATCH 1 PATCH TRANSDERM (10:15)
--- NOTE | 2023-04-06 11:29 | W.PM.PROC2 ---
Procedure Note - Detailed Date of Procedure 04/06/23 Pre-op Diagnosis sterilization Post-op Diagnosis Same Procedure Performed laparoscopic bilateral salpingectomy Surgeon Kate Hernandez MD [employer] Maura Stone, 4 Anesthesia General Findings normal-appearing tubes, ovaries, uterus Description of Procedure The patient is taken to the operating room and placed under anesthesia in the dorsal lithotomy position. She was prepped and draped in usual sterile fashion. Bladder was drained with a red rubber catheter. [place] speculum was placed in the vagina and the cervix grasped on the anterior lip with a tenaculum. The acorn manipulator was placed. The speculum was removed. Attention was then turned to the abdomen where a vertical skin incision was made at the base of the umbilicus. The abdomen is tented and the [place] needle placed. Water drop test is normal. Opening patient pressure was 5mmHg. Pneumoperitoneum was obtained using CO2 to a patient pressure of 15mmHg. The patient was placed in Trendelenburg and 2 skin incisions were made 3cm above the symphysis pubis 1 to the left 1 to the right of midline. 5Mm trocars are placed. The blunt probe was used to bring the tubes into the surgical field. The left tube was grasped at its fimbriated end with an atraumatic grasper. The LigaSure was used to cauterize and cut the mesosalpinx until the cornua was reached. Approximately 3cm above the cornua the tube was crossclamped, cauterized, and cut. Due to a tubal cyst, the tube would not fit through the trocar. Using the hook on the LigaSure, the cyst is drained. The tube was then removed through the trocar. The identical procedure was performed on the opposite side. All instruments are removed. Pneumoperitoneum was reduced. Skin incisions were closed using 4-0 nylon in an interrupted fashion. Sponge, needle, and instrument counts are correct per the OR staff. Patient was awakened from anesthesia and taken to recovery in stable condition. Estimated Blood Loss 25 Drains No Packing No Pathology Yes ( Bilateral fallopian tubes) Complications No immediate complications Condition Stable Disposition PACU
== END 2023-04-06 13:30 | disposition home or self-care (01) ==
PROVIDERS: Visit Provider Obstetrics & Gynecology Gynecology
PROC: (CPT 49320; principal; 2023-04-06 11:15)
DX: Z30.2 Encounter for sterilization (principal); J45.909 Unspecified asthma, uncomplicated; E66.9 Obesity, unspecified; Z68.32 Body mass index [BMI] 32.0-32.9, adult; Z79.51 Long term (current) use of inhaled steroids
CPT/HCPCS: 58661; 88302; A9270; J1100; J1885; J2250; J2405; J2704; J3010; J7030; J7120